=== PATIENT | male | born 1945 | race Caucasian/White ===

== ENCOUNTER 2023-12-07 13:12 | Emergency (ER) | payer OTHER, SELFPAY ==
[2023-12-07 13:21] VITALS: BP 126/93
--- NOTE | 2023-12-07 13:24 | ED.CVA ---
ED Provider Triage
<Ariadna Hernandez PA-C - Last Filed: 12/07/23 18:47>
-
Patient seen by provider in Triage?: Seen in Triage
Attestation: A medical screening examination has been initiated by a qualified medical provider. Based on the assessment performed at this time, it has been determined that an emergent medical condition may exist and the patient has been informed
that further medical evaluation and possible additional diagnostic testing may be needed.
HPI: 78yoM here with garbled speech that noticed at 12:30pm today when she spoke with him on the phone. He was speaking normally at breakfast this morning. Symptoms now resolved and patient feels normal. Hx of afib on Xarelto, HTN, HLD, DM.
GENERAL: Alert , in no apparent distress
EYE: No visual abnormalities.
NECK: Trachea midline
ENT: No visible abnormalities.
LUNGS: No acute respiratory distress
NEUROLOGICAL: Alert and oriented
SKIN: Skin intact. No visible changes.
MUSCULOSKELETAL: Moving extremities normally
PSYCH: Normal and appropriate interaction.
This is a medical evaluation conducted in person to initiate diagnostic evaluation and provide initial therapeutics. Please see further documentation by the treating clinician.
No dysarthria or aphasia noted during triage assessment. CBC, CMP, EKG, and CT head ordered.
History of Present Illness
<Ariadna Hernandez PA-C - Last Filed: 12/07/23 18:47>
General
Chief Complaint: CVA/TIA Symptoms
Time Seen by Provider: 12/07/23 13:52
<Nissa Morrison PA-C - Last Filed: 12/07/23 18:14>
General
Source: patient
Exam Limitations: none
Nursing documentation reviewed up to this point in time: agreed with
Onset of Stroke Symptoms
Onset of symptoms known: Yes
Date of onset of symptoms: 12/07/23
History of Present Illness
History of Present Illness:
This is a 78-year-old male with past medical history of jso-[id number] diabetes, hypertension, A-fib on Xarelto and flecainide presents emergency department today with concerns of a transient episode of aphasia. He states that today at
around 12:30 PM, he got a sudden onset of difficulty speaking. Patient reports that he was on the phone with his and he started to slur his words and repeat words, and he felt like he was not confused but felt it was difficult to get his words
out. His heard this on the phone and decided to return home and take him to the emergency department. Patient reports that this episode lasted around 5 to 10 minutes and he has never had anything like this before. Patient states he has no
difficulty speaking now. recalls normal speech at home this morning before she left the house. Patient denies any one-sided weakness, facial droop, numbness or tingling on 1 side versus the other. Patient denies any dizziness, any headache,
any difficulty with ambulating.
Review of Systems
<Nissa Morrison PA-C - Last Filed: 12/07/23 18:14>
Review of Systems
All Other Systems: ROS reviewed and negative except as documented in HPI and ROS
Phy Exam
<Ariadna Hernandez PA-C - Last Filed: 12/07/23 18:47>
NIH Stroke Score
Total Score:: 0
<Nissa Morrison PA-C - Last Filed: 12/07/23 18:14>
Physical Exam
Physical Exam:
General: Patient is well appearing and in no acute distress; non-toxic
Skin: Warm and dry, no rashes or lesions
Head: Normocephalic, atraumatic
Eyes: Sclera non-icteric. EOMs intact. PERRLA.
Cardiac: Regular rate and rhythm, no murmurs
Peripheral Vascular: No carotid bruits
Pulm: Normal respiratory effort, no wheezes, rales, rhonchi
Neuro: CN II-XII intact, no focal neurologic deficits. No facial droop. Normal finger-nose, hzce-ee-cmri testing. Normal gait. Normal speech
Psychiatric: Appropriate mood and affect.
NIH Stroke Score
Level of Consciousness: 0 - Alert
LOC questions: 0-Answers both correctly
LOC Commands: 0-Performs both correctly
Best Gaze: 0-Normal
Visual Masterson: 0=Normal, no visual loss
Facial palsy: 0=Normal, symmetrical
Motor - Right Arm: 0=No drift 10 seconds
Motor - Left Arm: 0=No drift 10 seconds
Motor - Right Le-No drift 5 seconds
Motor - Left Le-No drift 5 seconds
Limb Ataxia: 0-Absent
Sensation: 0-Normal
Best Language: 0-No aphasia
Dysarthria: 0-Normal
Extinction and Inattention: 0-No abnormality
Total Score:: 0
Course
<Ariadna Hernandez PA-C - Last Filed: 12/07/23 18:47>
Orders/Labs/Results
Orders:
Orders
12/07/23 13:27
Electrocardiogram (*1) Urgent
Reason for Study: TIA/Stroke
EKG- Treatment ONCE
12/07/23 13:28
CT Head W/o Iv Contrast Urgent
Comment:
Reason For Exam: Resolved speech disturbance
12/07/23 13:35
Complete Blood Count/With Diff Urgent
Comprehensive Metabolic Panel Urgent
PTT Urgent
Prothrombin Time Urgent
12/07/23 15:32
US Cerebrovascular Urgent
Comment:
Reason For Exam: transient aphasia/TIA symptoms
Abnormal Lab Results
12/07/23 12/07/23
13:22 13:35
RBC 4.38 L 10^6/uL
(4.70-6.10)
MCH 31.7 H pg
(27.0-31.0)
MPV 11.2 H fL
(7.4-10.4)
Absolute Monos (auto) 0.8 H 10^3/uL
(0.1-0.6)
Lymphocytes % 15.8 L %
(20.5-51.1)
Monocytes % 9.7 H %
(1.7-9.3)
PT 16.5 H Sec
(11.4-14.6)
BUN 22 H mg/dl
(9-20)
Glucose 224 H mg/dl
(70-99)
POC Glucose 206 H mg/dl
(70-99)
12/07/23 13:35
12/07/23 13:35
Vital Signs
Initial and Last Documented VS:
Initial Vital Signs
Temp Pulse Resp BP Pulse Ox
98 F 83 16 126/93 96
12/07/23 13:21 12/07/23 13:21 12/07/23 13:21 12/07/23 13:21 12/07/23 13:21
Last Documented Vital Signs
Temp Pulse Resp BP Pulse Ox
98 F 83 21 128/75 93
12/07/23 13:21 12/07/23 15:30 12/07/23 15:30 12/07/23 15:15 12/07/23 15:30
Anitralt;Nissa Morrison PA-C - Last Filed: 12/07/23 18:14>
Orders/Labs/Results
Orders:
Orders
12/07/23 13:27
Electrocardiogram (*1) Urgent
Reason for Study: TIA/Stroke
EKG- Treatment ONCE
12/07/23 13:28
CT Head W/o Iv Contrast Urgent
Comment:
Reason For Exam: Resolved speech disturbance
12/07/23 13:35
Complete Blood Count/With Diff Urgent
Comprehensive Metabolic Panel Urgent
PTT Urgent
Prothrombin Time Urgent
12/07/23 15:32
US Cerebrovascular Urgent
Comment:
Reason For Exam: transient aphasia/TIA symptoms
Abnormal Lab Results
12/07/23 12/07/23
13:22 13:35
RBC 4.38 L 10^6/uL
(4.70-6.10)
MCH 31.7 H pg
(27.0-31.0)
MPV 11.2 H fL
(7.4-10.4)
Absolute Monos (auto) 0.8 H 10^3/uL
(0.1-0.6)
Lymphocytes % 15.8 L %
(20.5-51.1)
Monocytes % 9.7 H %
(1.7-9.3)
PT 16.5 H Sec
(11.4-14.6)
BUN 22 H mg/dl
(9-20)
Glucose 224 H mg/dl
(70-99)
POC Glucose 206 H mg/dl
(70-99)
12/07/23 13:35
12/07/23 13:35
Vital Signs
Initial and Last Documented VS:
Initial Vital Signs
Temp Pulse Resp BP Pulse Ox
98 F 83 16 126/93 96
12/07/23 13:21 12/07/23 13:21 12/07/23 13:21 12/07/23 13:21 12/07/23 13:21
Last Documented Vital Signs
Temp Pulse Resp BP Pulse Ox
98 F 83 21 128/75 93
12/07/23 13:21 12/07/23 15:30 12/07/23 15:30 12/07/23 15:15 12/07/23 15:30
<Nissa Morrison PA-C - Last Filed: 12/07/23 18:14>
MDM/Problems Addressed
Differential Diagnosis Includes:
differentials include TIA, electrolyte derangement, hypoglycemia, pre-syncope
MDM/Problems Addressed:
78yoM here with garbled speech that noticed at 12:30pm today when she spoke with him on the phone. He was speaking normally at breakfast this morning. Symptoms now resolved and patient feels normal. Hx of afib on Xarelto, HTN, HLD, DM. Patient
is compliant with his medications. Patient today has an unremarkable neuro exam and has no return of his symptoms while here in the emergency department. He is not hypoglycemic, he has no electrolyte derangements. CT of the head was obtained which
showed no acute intracranial abnormalities but did show moderate diffuse cortical atrophy. Clinical picture consistent with possible transient ischemic attack. I did consult neurology via [employer] to go over case. Considering patient is on
maximal therapy with rivaroxaban and rosuvastatin, neurology does not feel that admission for MRI would change his treatment regimen. Ultrasound of the carotids was recommended which showed bilateral atherosclerotic disease but no significant
stenosis. Neurology feels the patient stable for discharge and outpatient follow-up at this point. 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
did provide copies of ultrasound report. Advised patient to return to the emergency department immediately or call 911 should he experience any return of his symptoms or any new neurologic symptoms. Patient expressed understanding. Patient stable
for discharge
Chronic conditions affecting care:
A-fib on Xarelto, high cholesterol, BPH, NIDDM
<Nissa Morrison PA-C - Last Filed: 12/07/23 18:14>
*Pulse Oximetry
Patient hypoxic: no
*Critical Care Note
Total Time (30-74mins, 75-104mins- exclusive of procedures): Not Applicable
Data Reviewed
Review of Other/Old Records Reveals: Records
<Nissa Morrison PA-C - Last Filed: 12/07/23 18:14>
Patient Management
Escalation/DeEscalation of care consider admission/obs:
Admit not indicated, case reviewed and discussed with Dr. Weaver from neurology, case reviewed and discussed with my ER attending Dr Orosco
ED Attending Note
<Ariadna Hernandez PA-C - Last Filed: 12/07/23 18:47>
-
Portions of this chart may have been created with voice recognition software.� Occasional wrong word or��sound alike� substitutions may have occurred due to the inherent limitations of voice recognition software.
Discharge Plan
Departure
Patient Disposition: Home (Routine Discharge)
Date of Disposition: 12/07/23
Time of Disposition: 17:36
Patient with high blood pressure during this ER visit?: Yes
Condition: Good
Discharge Problem:
Transient ischemic attack, acute
Instructions: Transient Ischemic Attack (DC), Aphasia (DC), BLOOD PRESSURE
Referrals:
Anisha Clark MD [Family Provider] -
Activity Restrictions/Additional Instructions:
Your case was discussed with neurology. You are safe for discharge.
Please continue your medications as directed and follow up with your screen printing machine loader unloader in 3 weeks as discussed, please show screen printing machine loader unloader carotid imaging results.
Please return to the ER IMMEDIATELY OR CALL 911 SHOULD YOU EXPERIENCE CHEST PAIN, SHORTNESS OF BREATH, DIFFICULTY SPEAKING OR SWALLOWING, FACIAL DROOP, DIFFICULTY WALKING, NUMBNESS OR TINGLING ON ONE SIDE OF THE BODY OR THE OTHER, CONFUSION,
HEADACHE, DIZZINESS, OR ANY OTHER SIGNS OR SYMPTOMS CONCERNING TO YOU.
Interventions
Interventions:
*Risk Screen - Suicide Last Done: 12/07/23 13:21
*General Assessment Last Done: 12/07/23 13:21
*Neglect/Abuse Screening Last Done: 12/07/23 13:21
ED- Fall Risk Assessment Last Done: 12/07/23 15:17
*ED COVID-19 Vaccine History Last Done: 12/07/23 15:17
*Nursing Disposition Last Done: 12/07/23 17:43
ED- Pulmonary Assessment Last Done: 12/07/23 13:55
ED- Neurological Assessment Last Done: 12/07/23 14:01
ED- Cardiac Assessment Last Done: 12/07/23 13:55
Discharge Date and Time
Discharge Date/Time: 12/07/23 17:44
Print Language: [place]
[2023-12-07 13:30] LABS: Glucose - Point of Care 206 mg/dl (70-99)
[2023-12-07 13:42] LABS: % Basophils 0.5 % (0-2); % Eosinophils 1.8 % (0-6); % Immature Granulocytes 0.3 % (0-0.5); % Lymphocytes 15.8 % (20.5-51.1); % Monocytes 9.7 % (1.7-9.3); % Neutrophils 71.9 % (42.2-75.2); Absolute Eosinophils 0.1 10^3/uL (0-0.7); Absolute Lymphocytes 1.2 10^3/uL (1.2-3.4); Absolute Monocytes 0.8 10^3/uL (0.1-0.6); Absolute Neutrophils 5.6 10^3/uL (1.4-6.5); Hematocrit 40.7 % (39.0-52.0); Hemoglobin 13.9 g/dL (13.0-18.0); Mean Corp Hgb Conc. 34.2 g/dL (33.0-37.0); Mean Corpuscular Hgb 31.7 pg (27.0-31.0); Mean Corpuscular Volume 92.9 fL (80.0-94.0); Mean Platelet Volume 11.2 fL (7.4-10.4); Nucleated Red Blood Cells % 0 % (-); Platelet Count 182 10^3/uL (130-400); Red Blood Cell Count 4.38 10^6/uL (4.70-6.10); Red Cell Dist. Width 12.7 % (11.5-14.5); White Blood Cell Count 7.8 10^3/uL (4.8-10.8)
[2023-12-07 13:54] VITALS: BP 151/83; BMI 30.8
[2023-12-07 13:58] LABS: INR 1.36; PT 16.5 Sec (11.4-14.6)
[2023-12-07 13:59] LABS: APTT 34.8 Sec (23.4-35.0)
[2023-12-07 14:00] VITALS: BP 149/89
[2023-12-07 14:08] LABS: ALT (SGPT) 36 U/L (0-50); AST (SGOT) 30 U/L (17-59); Albumin 4.5 g/dl (3.5-5.0); Alkaline Phosphatase 49 U/L (38-126); Blood Urea Nitrogen 22 mg/dl (9-20); Calcium 9.5 mg/dl (8.4-10.2); Carbon Dioxide 24 mmol/L (22-30); Chloride 100 mmol/L (98-107); Estimated Creatinine Clearance 76 ml/min; Glucose 224 mg/dl (70-99); Potassium 4.1 mmol/L (3.5-5.1); Sodium 138 mmol/L (135-145); Total Bilirubin 0.7 mg/dl (0.2-1.3); Total Protein 7.1 g/dl (6.3-8.2); eGFR > 60.00
[2023-12-07 15:15] VITALS: BP 128/75
== END 2023-12-07 17:44 | disposition home or self-care (01) ==
LOC: EMR 13:12
PROVIDERS: Physician Assistant; EMERGENCY PHYSICIAN Emergency Medicine; FAMILY PHYSICIAN Family Medicine
DX: G45.9 Transient cerebral ischemic attack, unspecified (principal); I48.91 Unspecified atrial fibrillation; I10 Essential (primary) hypertension; E78.00 Pure hypercholesterolemia, unspecified; E11.9 Type 2 diabetes mellitus without complications; I70.90 Unspecified atherosclerosis; N40.0 Benign prostatic hyperplasia without lower urinary tract symptoms; Z79.01 Long term (current) use of anticoagulants
CPT/HCPCS: 99284; 70450; 80053; 82962; 85025; 85610; 85730; 93005; 93880